=== PATIENT | female | born 1960 | race Caucasian/White ===

== ENCOUNTER → 2023-11-03 07:16 | Outpatient (REF) | payer OTHER, SELFPAY | LOC: WDC 07:16 | PROVIDERS: ATTENDING PHYSICIAN Family Medicine | DX: Z12.31 Encounter for screening mammogram for malignant neoplasm of breast (principal) | CPT/HCPCS: 77063; 77067 ==

== ENCOUNTER 2023-12-04 13:24 | Emergency (ER) | payer OTHER, SELFPAY ==
[2023-12-04 13:26] VITALS: BP 139/95
[2023-12-04 14:00] LABS: % Basophils 0.8 % (0-2); % Immature Granulocytes 0.2 % (0-0.5); % Lymphocytes 29.9 % (20.5-51.1); % Neutrophils 57.1 % (42.2-75.2); Absolute Basophils 0.1 10^3/uL (0-0.2); Absolute Eosinophils 0.2 10^3/uL (0-0.7); Absolute Lymphocytes 2.6 10^3/uL (1.2-3.4); Absolute Monocytes 0.9 10^3/uL (0.1-0.6); Hematocrit 38.2 % (37.0-47.0); Hemoglobin 12.4 g/dL (12.0-16.0); Mean Corp Hgb Conc. 32.5 g/dL (33.0-37.0); Mean Corpuscular Hgb 30.3 pg (27.0-31.0); Mean Corpuscular Volume 93.4 fL (81.0-99.0); Mean Platelet Volume 11.2 fL (7.4-10.4); Nucleated Red Blood Cells % 0 %; Platelet Count 297 10^3/uL (130-400); Red Blood Cell Count 4.09 10^6/uL (4.20-5.40); Red Cell Dist. Width 14.2 % (11.5-14.5); White Blood Cell Count 8.8 10^3/uL (4.8-10.8)
[2023-12-04 14:10] LABS: ALT (SGPT) 17 U/L (0-35); AST (SGOT) 23 U/L (14-36); Albumin 4.3 g/dl (3.5-5.0); Alkaline Phosphatase 86 U/L (38-126); Blood Urea Nitrogen 20 mg/dl (7-17); Calcium 9.5 mg/dl (8.4-10.2); Carbon Dioxide 22 mmol/L (22-30); Chloride 109 mmol/L (98-107); Glucose 80 mg/dl (70-99); Sodium 137 mmol/L (135-145); Total Bilirubin 0.4 mg/dl (0.2-1.3); Total Protein 7.1 g/dl (6.3-8.2); eGFR > 60.00
[2023-12-04 14:22] LABS: Troponin I < 0.012 ng/ml
[2023-12-04 15:48] VITALS: BP 126/93
[2023-12-04 16:00] VITALS: BP 163/91
[2023-12-04 17:00] VITALS: BP 118/75
--- NOTE | 2023-12-04 18:26 | ED.GENMED ---
History of Present Illness
General
Chief Complaint: Chest Pain
Source: patient
Exam Limitations: none
Time Seen by Provider: 12/04/23 15:42
Nursing documentation reviewed up to this point in time: agreed with
Travel History
Have you had any contact with someone who has COVID-19?: No
Do you have any symptoms of coronavirus? Fever > 100 degrees, chills, cough, shortness of breath, sore throat, loss of taste or smell, muscle aches, or headache?: No
History of Present Illness
History of Present Illness:
63-year-old female with past medical history of anemia presenting to the emergency department today with concerns of chest pain with radiation to her back and intermittent shortness of breath and lightheadedness over the past 3 weeks. Denies
palpitations nausea vomiting fevers denies recent illness.
Past History
Past History
ED Past Medical History: GERD and Other (Dariers ds)
ED Past Surgical History: Appendectomy, , Gynecological and Other (melanoma)
Social History
Tobacco: Former smoker
Alcohol: None
Drug: None
Living: with family
Employment: Employed
Family History
Family History: Early CAD
Review of Systems
Review of Systems
Allergies reviewed?: Yes
All Other Systems: ROS reviewed and negative except as documented in HPI and ROS
Phy Exam
Physical Exam
Physical Exam:
GENERAL: Alert , in no apparent distress
EYE: pupils equal and reactive
NECK: Supple, no significant adenopathy.
ENT: o/p clr, mmm.
CARDIAC: Regular rate and rhythm .
LUNGS: Clear breath sounds bilaterally, no acute respiratory distress, no wheezes/rales/rhonchi
ABDOMEN: Soft, without focal tenderness, no r/g, no cvat
NEUROLOGICAL: Alert and oriented, no focal neuro deficits
SKIN: Warm and dry, skin intact.
MUSCULOSKELETAL: No edema, well perfused.
PSYCH: Normal and appropriate interaction.
Scores
Heart Score for Chest Pain Patients
STEMI patient?: No
History: Slightly or Non-Suspicious
ECG: Normal
Age: >45 - <65 years
Risk Factors: 1 or 2 Risk Factors
Troponin: </= Normal Limit
Heart Score for Chest Pain Patients: 2
Heart Score Risk: 2.5% MACE over next 6 weeks
Course
Orders/Labs/Results
Orders:
Orders
12/04/23 13:30
Electrocardiogram (*1) Urgent
Reason for Study: Chest Pain
EKG- Treatment ONCE
12/04/23 13:42
Complete Blood Count/With Diff Urgent
Comprehensive Metabolic Panel Urgent
Troponin I Urgent
12/04/23 16:02
CT Chest Pe Study Urgent
Comment:
Reason For Exam: fall few months ago, rib fx, progressive SOB, pain
Abnormal Lab Results
12/04/23
13:42
RBC 4.09 L 10^6/uL
(4.20-5.40)
MCHC 32.5 L g/dL
(33.0-37.0)
MPV 11.2 H fL
(7.4-10.4)
Absolute Monos (auto) 0.9 H 10^3/uL
(0.1-0.6)
Monocytes % 10.0 H %
(1.7-9.3)
Chloride 109 H mmol/L
(98-107)
BUN 20 H mg/dl
(7-17)
12/04/23 13:42
12/04/23 13:42
Vital Signs
Initial and Last Documented VS:
Initial Vital Signs
Temp Pulse Resp BP Pulse Ox
97.9 F 63 20 139/95 100
12/04/23 13:26 12/04/23 13:26 12/04/23 13:26 12/04/23 13:26 12/04/23 13:26
Last Documented Vital Signs
Temp Pulse Resp BP Pulse Ox
97.9 F 60 14 127/80 100
12/04/23 13:26 12/04/23 18:35 12/04/23 18:35 12/04/23 18:35 12/04/23 13:26
MDM/Problems Addressed
MDM/Problems Addressed:
63-year-old female presenting to the emergency department today with concerns of achy chest discomfort rating to her back associated shortness of breath and lightheadedness over the past 3 weeks. On arrival vital signs are normal patient no
distress normal heart and lung examination labs unremarkable. Concerning the ongoing symptoms plan for CT scan for evaluation of aorta as well as potential PE. CT scan did show mild aneurysmal dilatation of the ascending aorta of 4.1 cm at the
level of the right main pulmonary artery. Additionally she does have vertebral body compression to T5 and T 7. Plan for close outpatient follow-up for this. As far as the ascending aorta abnormality Case was discussed with CT surgery they
recommended repeat imaging in 1 year. Patient will follow-up with her primary care doctor for this. Patient generally well-appearing throughout ER stay normal vital signs negative troponin after multiple weeks of symptoms making ACS very unlikely
advised for follow-up with cardiology as well. Given information for neurosurgery follow-up. Return precautions given.
*Critical Care Note
Total Time (30-74mins, 75-104mins- exclusive of procedures): Not Applicable
ED Attending Note
-
Portions of this chart may have been created with voice recognition software.� Occasional wrong word or��sound alike� substitutions may have occurred due to the inherent limitations of voice recognition software.
Discharge Plan
Departure
Patient Disposition: Home (Routine Discharge)
Date of Disposition: 12/04/23
Time of Disposition: 18:58
Patient with high blood pressure during this ER visit?: No
Condition: Good
Covid-19: Not Applicable
Discharge Problem:
Compression fx, thoracic spine, Aortic aneurysm
Instructions: Chest Pain PCP Follow Up
Prescriptions:
No Action
famotidine 40 MG tablet
40 mg PO HS
hydrocortisone valerate 0.2 % ointment
1 applic topical BID
acetaminophen 500 mg Tablet
1,000 mg PO Q6H PRN (Reason: pain)
dexlansoprazole [Dexilant] 60 mg Capsule,Biphase Delayed Releas
60 mg PO DAILY
hydrocodone-acetaminophen 5-325 mg tablet
1 tab PO Q6H PRN (Reason: pain) Qty: 20 0RF
Referrals:
Yovany Roberson Jr., DO [Family Provider] -
Darren Kaiser, [Active] - Follow up in 5-7 days
Activity Restrictions/Additional Instructions:
You came to the emergency department today with concerns of chest discomfort. Here you had a reassuring evaluation with a normal EKG, labs and troponin level your CT scan did show compression deformity to T5 and T7 which may be causing. Please
follow closely with neurosurgery for management of this. Additionally you are found to have a slight dilatation of the ascending aorta. This was discussed with our cardiothoracic team that recommends repeat imaging in 1 year for monitoring
purposes. Return to the emergency department for any worsening, new or concerning symptoms.
Interventions
Interventions:
*Risk Screen - Suicide Last Done: 12/04/23 13:26
*General Assessment Last Done: 12/04/23 13:26
*Neglect/Abuse Screening Last Done: 12/04/23 13:26
*ED COVID-19 Vaccine History Last Done: 12/04/23 15:42
ED- Cardiac Assessment Last Done: 12/04/23 15:49
Discharge Date and Time
Print Language: SLOVAK
[2023-12-04 18:35] VITALS: BP 127/80
[2023-12-04 19:45] VITALS: BP 151/93; BP 153/93
== END 2023-12-04 19:45 | disposition home or self-care (01) ==
LOC: EMR 13:24
PROVIDERS: Emergency Medicine; EMERGENCY PHYSICIAN Emergency Medicine; FAMILY PHYSICIAN Family Medicine
DX: M48.54XA Collapsed vertebra, not elsewhere classified, thoracic region, initial encounter for fracture (principal); I71.9 Aortic aneurysm of unspecified site, without rupture; K21.9 Gastro-esophageal reflux disease without esophagitis; Q82.8 Other specified congenital malformations of skin; Z85.820 Personal history of malignant melanoma of skin; Z87.891 Personal history of nicotine dependence; Z90.49 Acquired absence of other specified parts of digestive tract; Z82.49 Family history of ischemic heart disease and other diseases of the circulatory system
CPT/HCPCS: 99284; 71275; 80053; 84484; 85025; 93005; Q9967

== ENCOUNTER → 2024-01-15 06:34 | Outpatient (REF) | payer OTHER, SELFPAY | LOC: MRI 3T 06:34 | PROVIDERS: ATTENDING PHYSICIAN Physician Assistant Surgical; FAMILY PHYSICIAN Family Medicine | DX: M54.6 Pain in thoracic spine (principal); S22.000A Wedge compression fracture of unspecified thoracic vertebra, initial encounter for closed fracture | CPT/HCPCS: 72146 ==

== ENCOUNTER → 2024-01-25 07:10 | Outpatient (REF) | payer OTHER, SELFPAY | LOC: RCS 07:10 | PROVIDERS: ATTENDING PHYSICIAN Physician Assistant; FAMILY PHYSICIAN Family Medicine; REFERRING PHYSICIAN Dermatology | DX: I35.0 Nonrheumatic aortic (valve) stenosis (principal); R42 Dizziness and giddiness; R06.09 Other forms of dyspnea | CPT/HCPCS: 93306 ==

== ENCOUNTER → 2024-03-26 06:55 | Outpatient (REF) | payer OTHER, SELFPAY | LOC: RAD 06:55 | PROVIDERS: ATTENDING PHYSICIAN Internal Medicine Critical Care Medicine; FAMILY PHYSICIAN Family Medicine | DX: R93.89 Abnormal findings on diagnostic imaging of other specified body structures (principal) | CPT/HCPCS: 71250 ==

== ENCOUNTER 2024-10-31 06:34 | Day surgery (SDC) | payer OTHER, SELFPAY | END 2024-10-31 11:59 | disposition home or self-care (01) | LOC: GI 06:34 | PROVIDERS: ATTENDING PHYSICIAN Internal Medicine Gastroenterology | DX: R13.10 Dysphagia, unspecified (principal); R12 Heartburn; K44.9 Diaphragmatic hernia without obstruction or gangrene; K31.89 Other diseases of stomach and duodenum; K29.50 Unspecified chronic gastritis without bleeding | CPT/HCPCS: 43239; 88305; 88342 ==

== ENCOUNTER → 2024-11-06 07:21 | Outpatient (REF) | payer OTHER, SELFPAY | LOC: WDC 07:21 | PROVIDERS: ATTENDING PHYSICIAN Obstetrics & Gynecology; FAMILY PHYSICIAN Family Medicine | DX: Z12.31 Encounter for screening mammogram for malignant neoplasm of breast (principal) | CPT/HCPCS: 77063; 77067 ==

== ENCOUNTER → 2024-12-19 10:22 | Outpatient (REF) | payer OTHER, SELFPAY | LOC: RAD 10:22 | PROVIDERS: ATTENDING PHYSICIAN Internal Medicine Gastroenterology | DX: K44.9 Diaphragmatic hernia without obstruction or gangrene (principal) | CPT/HCPCS: 74221 ==